=== PATIENT | female | born 1995 | race Caucasian/White ===

== ENCOUNTER 2018-12-06 11:44 | Emergency (ER) | payer OTHER, SELFPAY ==
[2018-12-06 11:46] VITALS: BP 119/71; PULSE 105; RESP 16; TEMP 38.4; O2SAT 100
[2018-12-06] MEDS: IBUPROFEN 400 MG TABLET 800 MG PO (13:26)
--- NOTE | 2018-12-06 13:47 | ED.URI ---
HPI - URI/Sore Throat <Miladis Seals PA-C - Last Filed: 12/06/18 21:58> General Chief Complaint: Upper Respiratory Symptoms Stated Complaint: 'bad ear infection' Time Seen by Provider: 12/06/18 12:59 Source: patient Mode of arrival: ambulatory Limitations: no limitations History of Present Illness HPI Narrative: This 22 year old female complains of onset of sore throat and feeling warm last Wednesday, then all over body aches, cough, and congestion. She states that she has been taking NyQuil which helps somewhat. She has not been taking her temperature at home. She states that she started to have sharp pain in her left ear today, now a little bit on the right also so was concerned about ear infection though this does not feel like her previous one. She states her hearing is normal. Cough is mostly dry, she is not short of breath or having chest pain. She states her throat is more scratchy than very sore like when she had strep throat. She states she is healthy and up-to-date on vaccines aside from not getting flu shot this season. She denies any recent travel or known exposures. She is healthy with no chronic medical problems, no history of surgery. She states that she smokes occasionally, no EtOH or drug use. She denies any possibility of . Related Data Allergies Allergy/AdvReac Type Severity Reaction Status Date / Time No Known Drug Allergies Allergy Verified 12/06/18 11:46 Review of Systems <Miladis Seals PA-C - Last Filed: 12/06/18 21:58> Review of Systems ROS Unobtainable: All systems reviewed & are unremarkable except as noted in HPI and below PFSH <Miladis Seals PA-C - Last Filed: 12/06/18 21:58> Social History Smoking Status: Never smoker Social History Smoking Status: Current some day smoker Exam <Miladis Seals PA-C - Last Filed: 12/06/18 21:58> Narrative Exam Narrative: GENERAL APPEARANCE: Patient sitting comfortably, in no distress. HEAD: No sinus TTP. EYES: PERRL, EOMI. EARS: Normal auditory canals, TMS intact, pink, with normal light reflexes. ORAL CAVITY: Normal oropharynx. THROAT: Minimally erythematous without exudate NECK/THYROID: Neck supple, full range of motion, shotty anterior cervical lymphadenopathy. LUNGS: Clear to auscultation bilaterally, occasional course cough on exam. HEART: RRR without murmur, nl S1, S2, no S3 or S4. DERMATOLOGIC: No exanthem Initial Vital Signs Initial Vital Signs: Vital Signs Temperature 101.2 F H 12/06/18 11:46 Pulse Rate 105 H 12/06/18 11:46 Respiratory Rate 16 12/06/18 11:46 Blood Pressure 119/71 12/06/18 11:46 Pulse Oximetry 100 12/06/18 11:46 <Daniela Ch DO - Last Filed: 12/10/18 00:48> Initial Vital Signs Initial Vital Signs: Vital Signs Temperature 101.2 F H 12/06/18 11:46 Pulse Rate 105 H 12/06/18 11:46 Respiratory Rate 16 12/06/18 11:46 Blood Pressure 119/71 12/06/18 11:46 Pulse Oximetry 100 12/06/18 11:46 Course <Miladis Seals PA-C - Last Filed: 12/06/18 21:58> Orders Ordered: Discontinued Medications Ibuprofen (Advil) 800 mg PO NOW ONE Stop: 12/06/18 13:19 Last Admin: 12/06/18 13:26 Dose: 800 mg Vital Signs - 8 hr 12/06/18 14:14 Temperature 100.8 F H Pulse Rate 108 H Respiratory Rate 16 Blood Pressure [Right Arm] 109/69 Pulse Oximetry 96 <Daniela Ch DO - Last Filed: 12/10/18 00:48> Orders Ordered: Discontinued Medications Ibuprofen (Advil) 800 mg PO NOW ONE Stop: 12/06/18 13:19 Last Admin: 12/06/18 13:26 Dose: 800 mg Vital Signs - 8 hr 12/06/18 14:14 Temperature 100.8 F H Pulse Rate 108 H Respiratory Rate 16 Blood Pressure [Right Arm] 109/69 Pulse Oximetry 96 Discharge Plan Departure Patient Disposition: Home Clinical Impression: Upper respiratory infection Qualifiers: URI type: unspecified viral URI Qualified Code(s): J06.9 - Acute upper respiratory infection, unspecified Discharge Date/Time: 12/06/18 14:43 Interventions: ED Discharge Assessment Last Done: 12/06/18 14:43 Instructions: DI for Viral Upper Respiratory Infection -- Adult Activity Restrictions/Additional Instructions: I suspect that your symptoms are due to a virus. This may be the flu given your fever and body aches, but it could also be another type of virus. The typically these symptoms take 7-14 days to fully resolve, so I suspect you will start feeling better by this weekend. You should rest at home. Since you have ibuprofen, start taking 800 mg (4 of the [id number] tablets) every 8 hr to help with fever and body aches. You can add your NyQuil or Tylenol in addition as needed. You may also wish to get some pseudoephedrine (you need to get this from the pharmacist but it is [id number]) to help with your congestion and earache. You can also use an antihistamine [id number] such as Zyrtec (cetirizine 10 mg) daily and Mucinex to help with your drainage and chest congestion. Please return to the closest ED as we talked about if you have any acutely worsening symptoms, i.e. trouble breathing, high fever not responding to medicines, etc. Please follow up with a primary care provider or walk-in clinic if you are not feeling better in a week. <Daniela Ch, DO - Last Filed: 12/10/18 00:48> Cosign ED Attending Sarikaature Attestation: I was immediately available in the department for consultation. Documentation has been reviewed. I agree with assessment and plan.
--- NOTE | 2018-12-06 13:58 | PC.NURSE ---
reports left ear pain worsen than right side, sorethroat, feeling hot for couple days, nose congestions, bodyaches, has been taking nyquil. occasional smoker . denies long distance traveling.
[2018-12-06 14:14] VITALS: BP 109/69; PULSE 108; RESP 16; TEMP 38.2; O2SAT 96
== END 2018-12-06 14:43 | disposition home or self-care (01) ==
PROVIDERS: Emergency Provider Internal Medicine
DX: J06.9 Acute upper respiratory infection, unspecified (principal)
CPT/HCPCS: 99282; 99283